=== PATIENT | female | born 1990 | race Caucasian/White ===

== ENCOUNTER 2024-07-21 09:49 | Emergency (ER) | payer MEDICAID ==
[~2024-07-21] VITALS: Ht 162.6 cm; Wt 87.2 kg
[2024-07-21 09:52] VITALS: BP 108/84; PULSE 88; RESP 16; O2SAT 100
[2024-07-21 11:02] VITALS: TEMP 98
== END 2024-07-21 11:05 | disposition home or self-care (01) ==
LOC: ER 09:50
DX: Z76.0 Encounter for issue of repeat prescription (principal); R94.31 Abnormal electrocardiogram [ECG] [EKG]; Z88.2 Allergy status to sulfonamides
CPT/HCPCS: 93005; 99283